=== PATIENT | male | born 1950 | race Caucasian/White ===

== ENCOUNTER 2021-11-12 19:03 | Emergency (ER) | payer BC ==
[2021-11-12] MEDS ORDERED: TETANUS & DIPHTHERIA TOX,ADULT 0.5 ML VIAL ONE (20:32)
--- NOTE | 2021-11-12 20:38 | RAD REPORT ---
EXAM DESCRIPTION: RAD - Hand Right 3 View - 11/12/2021 8:32 pm CLINICAL HISTORY: Right hand pain status post injury FINDINGS: No fracture or dislocation is seen. Soft tissue laceration first distal phalanx
--- NOTE | 2021-11-12 21:29 | EDPHYS ---
Physician Documentation [facility] Name: Lefty Hernández Age: 71 yrs Sex: Male : 1950 Arrival Date: 11/12/2021 Time: 19:06 Bed 8 Private MD: ED Physician Dm Holman HPI: 11/12 19:24 This 71 yrs old Male presents to ER via Ambulatory with complaints of Thumb Injury. jmm 19:24 The patient or guardian complains of injury, pain. Onset: The symptoms/episode jmm began/occurred acutely, just prior to arrival. Modifying factors: The symptoms are alleviated by nothing. the symptoms are aggravated by nothing. This is a 71-year-old male that presents emerged department with a laceration to his left thumb after being crushed in a trailer. Denies other injury. Patient is unsure on tetanus immunization status.. Historical: - Allergies: 19:10 No Known Allergies; hb - Immunization history:: Last tetanus immunization: < 10 years ago. - Social history:: Smoking status: Patient denies any tobacco usage or history of. ROS: 19:24 Constitutional: Negative for fever, chills, and weight loss, Cardiovascular: Negative jmm for chest pain, palpitations, and edema, Respiratory: Negative for shortness of breath, cough, wheezing, and pleuritic chest pain. 19:24 Skin: Positive for laceration(s). 19:24 All other systems are negative. Exam: 19:24 Constitutional: This is a well developed, well nourished patient who is awake, alert, jmm and in no acute distress. Head/Face: atraumatic. Eyes: EOMI, no conjunctival erythema appreciated ENT: Moist Mucus Membranes Neck: Trachea midline, Supple Chest/axilla: Normal chest wall appearance and motion. Cardiovascular: Regular rate and rhythm. No edema appreciated Respiratory: Normal respirations, no respiratory distress appreciated Abdomen/GI: Non distended Back: Normal ROM 19:24 Skin: 3 cm laceration to the left thumb. 19:24 Neuro: Orientation: is normal, Mentation: is normal, Memory: is normal. 19:24 Psych: Behavior/mood is pleasant, cooperative. Vital Signs: 19:09 BP 134 / 94; Pulse 84; Resp 16; Temp 98.3; Pulse Ox 97% on R/A; Weight 97.07 kg; Height hb 5 ft. 9 in. (175.26 cm); Pain 3/10; 20:00 BP 126 / 78; Pulse 81; Resp 16; Pulse Ox 97% on R/A; jb4 19:09 Body Mass Index 31.60 (97.07 kg, 175.26 cm) hb Laceration: 21:27 Wound Repair of 3cm ( 1.2in ) subcutaneous laceration to dorsal aspect of distal jmm phalanx of left thumb. Distal neuro/vascular/tendon intact. Anesthesia: Local anesthetic administered with 5 mls of 0.5% marcaine. Wound prep: Moderate cleansing with betadine by me. Skin closed with 8 5-0 Prolene using simple sutures and sterile technique. Patient tolerated well. MDM: 19:24 Patient medically screened. jmm 21:27 Data reviewed: vital signs, nurses notes. Counseling: I had a detailed discussion with [facility] the patient and/or guardian regarding: the historical points, exam findings, and any diagnostic results supporting the discharge/admit diagnosis, radiology results, the need for outpatient follow up, to return to the emergency department if symptoms worsen or persist or if there are any questions or concerns that arise at home. ED course: Patient is alert nontoxic in appearance NAD. Patient advised to follow-up with ECP in 2 weeks for reevaluation. Patient otherwise given strict return precautions. Patient understood and agrees plan of care.. 11/12 19:38 Order name: Hand Right 3 View XRAY; Complete Time: 20:48 [facility] Administered Medications: 20:32 Drug: Tetanus-Diphtheria Toxoid Adult 0.5 ml {Hoist Mechanic: locr. Exp: jb4 08/20/2023. Lot #: [id number]. } Route: IM; Site: right deltoid; 21:53 Follow up: Response: (VIS) Vaccine information sheet provided today. Questions and/or tw5 concerns addressed. VIS edition date: Nov 19, 2020.; No adverse reaction Disposition: 22:14 Co-signature as Attending Physician, Dm Holman MD I agree with the assessment and kdr plan of care. Disposition Summary: 11/12/21 21:29 Discharge Ordered Location: Home [facility] Condition: Stable [facility] Diagnosis - Laceration of the left thumb [facility] Followup: [facility] - With: Private Physician - When: 10 - 14 days - Reason: Recheck today's complaints, Continuance of care, Staple/Suture removal, Re-evaluation by your physician Discharge Instructions: - Discharge Summary Sheet [place] - Laceration Care, Adult [facility] Forms: - Medication Reconciliation Form [place] - Thank You Letter [facility] - Antibiotic Education [place] - Prescription Opioid Use [place] Prescriptions: - Doxycycline Hyclate 100 mg Oral Tablet - take 1 tablet by ORAL route every 12 hours; 20 tablet; Refills: 0, Product [facility] Selection Permitted Signatures: Dispatcher [employer] Dm Abreu MD MD kdr Mickail, Joel, PA PA jmm Baxter, Heather RN RN Paul Carranza RN RN jb4 Steffany Harrison 5
--- NOTE | 2021-11-12 21:29 | ER ---
Nurse's Notes [facility] Name: Lefty Hernández Age: 71 yrs Sex: Male : 1950 Arrival Date: 11/12/2021 Time: 19:06 Bed 8 Private MD: Diagnosis: Laceration of the left thumb Presentation: 11/12 19:09 Chief complaint: Crush injury to left thumb while using jacking up a trailer. hb Coronavirus screen: At this time, the client does not indicate any symptoms associated with coronavirus-19. Ebola Screen: No symptoms or risks identified at this time. Initial Sepsis Screen: Does the patient meet any 2 criteria? No. Patient's initial sepsis screen is negative. Does the patient have a suspected source of infection? No. Patient's initial sepsis screen is negative. Risk Assessment: Do you want to hurt yourself or someone else? Patient reports no desire to harm self or others. Onset of symptoms was November 12, 2021. 19:09 Method Of Arrival: Ambulatory hb 19:09 Acuity: MOI 3 hb Historical: - Allergies: 19:10 No Known Allergies; hb - Immunization history:: Last tetanus immunization: < 10 years ago. - Social history:: Smoking status: Patient denies any tobacco usage or history of. Screenin:30 Abuse screen: Denies threats or abuse. Nutritional screening: No deficits noted. jb4 Tuberculosis screening: No symptoms or risk factors identified. Fall Risk None identified. Assessment: 19:30 General: Appears in no apparent distress. comfortable, Behavior is calm, cooperative, jb4 appropriate for age. Pain: Denies pain. Complains of pain in dorsal aspect of distal phalanx of left thumb Pain does not radiate. Pain currently is 3 out of 10 on a pain scale. Neuro: Level of Consciousness is awake, alert, obeys commands, Oriented to person, place, time, situation. Cardiovascular: Patient's skin is warm and dry. Respiratory: Airway is patent Respiratory effort is even, unlabored, Respiratory pattern is regular, symmetrical. Derm: Skin is pink, warm \T\ dry. Musculoskeletal: Circulation, motion, and sensation intact. Range of motion: intact in all extremities. 19:30 Injury Description: Laceration sustained to dorsal aspect of distal phalanx of left jb4 thumb. Vital Signs: 19:09 BP 134 / 94; Pulse 84; Resp 16; Temp 98.3; Pulse Ox 97% on R/A; Weight 97.07 kg; Height hb 5 ft. 9 in. (175.26 cm); Pain 3/10; 20:00 BP 126 / 78; Pulse 81; Resp 16; Pulse Ox 97% on R/A; jb4 19:09 Body Mass Index 31.60 (97.07 kg, 175.26 cm) hb ED Course: 19:06 Patient arrived in ED. ja2 19:10 Triage completed. hb 19:10 Arm band placed on. hb 19:12 Dave Grissom PA is PHCP. [facility] 19:12 Dm Holman MD is Attending Physician. [facility] 19:30 Patient has correct armband on for positive identification. Bed in low position. Call jb4 light in reach. Side rails up X 1. Client placed on continuous cardiac and pulse oximetry monitoring. NIBP monitoring applied. 20:18 Paul Carranza, RN is Primary Nurse. 4 20:33 Hand Right 3 View XRAY In Process Unspecified. EDMS 21:51 Patient did not have IV access during this emergency room visit. Wound care: to tw5 laceration was cleaned with Hibiclens, dressed with Neosporin, 4X4s. 21:52 Assist provider with laceration repair on palmar aspect of distal phalanx of left thumb tw5 that was between 2.6 to 7.5 cm using sutures. Performed by Dave CHRISTIANSON. Administered Medications: 20:32 Drug: Tetanus-Diphtheria Toxoid Adult 0.5 ml {Cage Shift Manager: [place]. Exp: jb4 08/20/2023. Lot #: [id number]. } Route: IM; Site: right deltoid; 21:53 Follow up: Response: (VIS) Vaccine information sheet provided today. Questions and/or tw5 concerns addressed. VIS edition date: Nov 19, 2020.; No adverse reaction Medication: 21:53 Vaccine Information Statement (VIS) provided today. Questions and/or concerns tw5 addressed. VIS edition date: November 12, 2021. Outcome: 21:29 Discharge ordered by . [facility] 21:51 Discharged to home ambulatory. tw5 21:51 Condition: good 21:51 Discharge instructions given to patient, Instructed on discharge instructions, follow up and referral plans. Demonstrated understanding of instructions, follow-up care, medications, Prescriptions given X 1. 21:53 Patient left the ED. tw5 Signatures: Dispatcher [employer] EDMS Dave Grissom PA PA jmm Baxter, Heather, RN RN Paul Carty RN RN jb4 Lisandra Hinson Tiffany tw5
[2021-11-12 21:58] VITALS: TEMP 98.3; O2SAT 97
[2021-11-12 22:01] VITALS: BP 126/78
== END 2021-11-12 21:53 | disposition home or self-care (01) ==
LOC: ER 19:03
PROC: 0JQK0ZZ Repair Left Hand Subcutaneous Tissue and Fascia, Open Approach (ICD-10-PCS; principal; 2021-11-12)
DX: S61.012A Laceration without foreign body of left thumb without damage to nail, initial encounter (principal); Z23 Encounter for immunization
CPT/HCPCS: 90471; 90714; 99284